=== PATIENT | female | born 1980 | race Caucasian/White ===

== ENCOUNTER 2021-12-26 19:25 | Emergency (ER) | payer OTHER ==
[~2021-12-26] VITALS: Ht 157.5 cm; Wt 79.0 kg
[2021-12-26 19:51] VITALS: BP 154/92
[2021-12-26] MEDS ORDERED: cyclobenzaprine 10mg tablet PO ONE (21:40)
[2021-12-26] MEDS ORDERED: acetaminophen 325mg tablet PO ONE (21:40)
[2021-12-26] MEDS ORDERED: CYCL-1 PO (21:45)
== END 2021-12-26 22:06 | disposition home or self-care (01) ==
LOC: ER 19:26
DX: M54.2 Cervicalgia (principal); Z88.6 Allergy status to analgesic agent; V87.7XXA Person injured in collision between other specified motor vehicles (traffic), initial encounter; Y93.89 Activity, other specified; Y92.89 Other specified places as the place of occurrence of the external cause; Y99.8 Other external cause status
CPT/HCPCS: 99283; L0172